=== PATIENT | male | born 1990 | race Caucasian/White ===

== ENCOUNTER 2023-11-14 21:15 | Emergency (ER) | payer OTHER ==
[2023-11-14 21:34] VITALS: O2SAT 99
[2023-11-14] MEDS: BACITRACIN ZINC OINT 1 PACKET TOP STA (21:38)
[2023-11-14] MEDS: lidocaine 1% 20 ML MDV SUBQ ONE (21:38)
[2023-11-14] MEDS: TETANUS/DIPHTHERIA/PERTUSSIS 0.5 ML SYRINGE IM ONE (21:39)
--- NOTE | 2023-11-14 22:01 | ED Physician Documentation ---
History of Present Illness - Stated complaint Stated Complaint: R THUMB LAC - Chief complaint Chief Complaint: Laceration - History obtained from History obtained from: Patient - Additonal information Additional information: 33yM [employer] (therefore UTD on tetanus) p/w laceration to R first finger from cutting on knife while washing dishes. R hand dominant. also with scratch to L hand. PD PAST MEDICAL HISTORY - Past Medical History Past Medical History: No - Past Surgical History Past Surgical History: No - Present Medications Home Medications: Ambulatory Orders Medication Instructions Recorded Confirmed No Known Home Medications 11/14/23 11/14/23 - Allergies Allergies/Adverse Reactions: Allergies Allergy/AdvReac Type Severity Reaction Status Date / Time No Known Drug Allergies Allergy Verified 11/14/23 21:29 - Social History Does the pt smoke?: No Smoking Status: Never smoker Does the pt drink ETOH?: No Does the pt have substance abuse?: No - Immunizations Immunizations are current?: No Immunizations: TDAP >10years/unknown - POLST Patient has POLST: No PD ED PE NORMAL - Vitals Vital signs reviewed: Yes - General General: Alert and oriented X 3, No acute distress, Well developed/nourished - HEENT HEENT: Atraumatic, PERRL, EOMI - Derm Derm: Normal color, Warm and dry, Other (1cm laceration of distal tip of R first finger. hemostatic. no tendon involvement) Results - Vitals Vitals: Vital Signs - 24 hr 11/14/23 21:26 Temperature 36.7 C Heart Rate 67 Respiratory 18 Rate Blood Pressure 145/80 H O2 Saturation 99 Oxygen O2 Source Room air Procedures - Laceration (location) Finger right Length in cm: 1 Wound type: Flap Neurovascular status: Sensory intact, Motor intact, Vascular intact Tendon involvement: Tendon intact Anesthesia: Lidocaine 1% Wound preparation: Irrigated copiously NS, Wound explored, To the base Skin layer closure: Nylon, Interrupted, Size #-0 - enter number (4), Sutures - enter # (3) Other: Patient tolerated well, No complications, Neurovascular intact, Dressing applied, Tetanus UTD PD Medical Decision Making - ED course ED course: 33yM p/w laceration of R first finger, cleaned and repaired without issue. 3 stitches placed to be removed in 14 days. 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 Symptomatic care discussed and return precautions given. Departure - Departure Disposition: 01 Home, Self Care Clinical Impression: Laceration of finger Condition: Stable Instructions: ED Laceration All Comments: You were seen in the emergency department for cut finger. Three stiches were placed that need to be removed in 14 days. Please follow-up with your primary care provider and return to the emergency department if you have any new or worsening symptoms or other concerns.
[2023-11-14 22:11] VITALS: BP 127/80
== END 2023-11-14 22:15 | disposition home or self-care (01) ==
LOC: ED 21:15
DX: S61.210A Laceration without foreign body of right index finger without damage to nail, initial encounter (principal); W26.0XXA Contact with knife, initial encounter; Y93.G1 Activity, food preparation and clean up
CPT/HCPCS: 12001; 99283